=== PATIENT | male | born 1955 | race Hispanic/Latino ===

== ENCOUNTER 2018-04-30 08:33 | Emergency (ER) | payer MEDICAID ==
[~2018-04-30] VITALS: Ht 165.1 cm; Wt 109.0 kg
[2018-04-30 09:18] LABS: HEMATOCRIT 45.1 % (39.0-50.0); HEMOGLOBIN 14.8 g/dl (14.0-18.0); IMMATURE GRANULOCYTES 0.4 % (0.0-1.0); MEAN CELL VOLUME 88.6 fL CALC (80.0-100.0); MEAN CORPUSCULAR HGB 29.1 pG CALC (26.0-32.0); MEAN CORPUSCULAR HGB CONC 32.8 g/L CALC (32.0-36.0); NEUT# 10.59 thou/uL (1.82-7.42); RED BLOOD COUNT 5.09 mill/uL (4.70-6.10); RED CELL DISTRI WIDTH 13.7 % (11.5-15.5)
[2018-04-30 09:27] LABS: ANION GAP 12 (6-22 (CALC)); BUN 23 mg/dL (8-23); BUN/CREATININE RATIO 26 (12-20 (CALC)); CARBON DIOXIDE 30 mmol/l (22-30); CHLORIDE 99 mmol/l (95-108); CREATININE 0.9 mg/dL (0.7-1.3); GFR > 60 ML/MIN (>=60 (CALC)); GFR FOR AFR.AMER. > 60 ML/MIN (>=60 (CALC)); POTASSIUM 4.2 mmol/l (3.5-5.1); SODIUM 137 mmol/l (137-146)
[2018-04-30] MEDS ORDERED: CATAPRES0.1 MG PO (09:40)
[2018-04-30] MEDS ORDERED: INDOCIN50 MG/CAP PO (09:40)
[2018-04-30] MEDS ORDERED: INDOMETHACIN75 MG PO (13:07)
[2018-04-30 13:59] VITALS: BP 130/67
== END 2018-04-30 14:00 | disposition home or self-care (01) | DRG 556 ==
LOC: ED 08:33
PROVIDERS: Family Medicine
DX: M25.562 Pain in left knee (principal); M25.561 Pain in right knee; R07.9 Chest pain, unspecified; M17.11 Unilateral primary osteoarthritis, right knee